=== PATIENT | female | born 1980 | race Two or more races ===

== ENCOUNTER 2017-07-16 23:06 | Emergency (ER) | payer MEDICAID ==
[~2017-07-16] VITALS: Ht 154.9 cm; Wt 56.7 kg
[~2017-07-16 23:06] MED LIST: DIAZ10TA PO; DIPH2.5T73 PO; ONDA4TAB5 PO
[2017-07-16 23:35] VITALS: BP 148/95
== END 2017-07-17 01:39 | disposition short-term general hospital (02) ==
LOC: EDBD 23:06 → EDUNIT# 23:06 → ER 23:27
DX: T74.21XA Adult sexual abuse, confirmed, initial encounter (principal); Y92.89 Other specified places as the place of occurrence of the external cause

== ENCOUNTER → 2019-11-10 | Emergency (ER) | payer MEDICAID ==
[~2019-11-10] VITALS: Ht 154.9 cm; Wt 59.0 kg
[~2019-11-10] MED LIST changes: +KETOROLAC TROMETH 30 MG/ML 1ML VIAL IV ONE; +ONDA-144 PO; -ONDA4TAB5 PO; +ONDANSETRON HCL 4 MG/2 ML VIAL IV ONE; +SODIUM CHLORIDE 0.9% 1,000 ML IV ONE; +diphenhdrAMINE HCL 50 MG/1 ML VL IV ONE; +diphenhdrAMINE HCL 50 MG/1 ML VL ONE
[2019-11-10 14:39] LABS: Basophils # (auto) 0.1 10 ^3/uL (0-0.2); Basophils % (auto) 0.7 % (0.0-2.0); Eosinophils # (auto) 0.1 10 ^3/uL (0-0.8); Eosinophils % (auto) 1.5 % (0.0-7.0); Hematocrit 36.7 % (36.0-46.0); Hemoglobin 12.1 g/dL (12.2-16.2); Lymphocytes # (auto) 2.7 10 ^3/uL (0.4-5.4); Lymphocytes % (auto) 33.2 % (10.0-50.0); Mean Corpuscular Hemoglobin 28.1 pg (28.0-32.0); Mean Corpuscular Volume 85.1 fL (80.0-100.0); Monocytes # (auto) 0.8 10 ^3/uL (0-1.3); Monocytes % (auto) 10.2 % (0.0-12.0); Neutrophils # (auto) 4.4 10 ^3/uL (1.6-8.6); Neutrophils % (auto) 54.4 % (37.0-80.0); Nucleated Red Blood Cells % 0.2 %; Platelet Count (auto) 302 10^3/uL (140-450); Red Blood Cells 4.31 10^6/uL (4.0-5.20); Red Cell Distribution Width 14.3 % (11.8-14.3); White Blood Cell 8.1 10^3/uL (4.4-10.8)
[2019-11-10 14:53] VITALS: BP 100/69
[2019-11-10 14:53] LABS: Alanine Aminotransferase 21 U/L (13-56); Albumin 2.9 g/dL (3.4-5.0); Anion Gap 5 (5-15); Aspartate Aminotransferase 18 U/L (15-37); BUN/Creatinine Ratio 20.8; Blood Urea Nitrogen 10 mg/dL (7-18); Carbon Dioxide 24 mmol/L (21-32); Chloride 112 mmol/L (98-107); GFR African American 184 mL/min; GFR Non-African American 152 mL/min; Glucose 84 mg/dL (74-106); Potassium 3.6 mmol/L (3.5-5.1); Sodium 141 mmol/L (136-145)
[2019-11-10 14:58] LABS: Alkaline Phosphatase 64 U/L (45-117); Bilirubin, Total 0.3 mg/dL (0.2-1.0); Total Protein 6.5 g/dL (6.4-8.2)
== END | disposition home or self-care (01) ==
LOC: EDUNIT# 13:17 → ER 13:29 → EDBD 13:29
DX: G40.909 Epilepsy, unspecified, not intractable, without status epilepticus (principal); F19.90 Other psychoactive substance use, unspecified, uncomplicated; E46 Unspecified protein-calorie malnutrition; F17.210 Nicotine dependence, cigarettes, uncomplicated; Z68.24 Body mass index [BMI] 24.0-24.9, adult; Z90.49 Acquired absence of other specified parts of digestive tract
CPT/HCPCS: 36415; 70450; 71045; 80053; 84484; 85025; 96361; 96374; 96375; 99285; J1200; J1885; J2405; J7030

== ENCOUNTER 2020-01-15 14:29 | Emergency (ER) | payer MEDICAID ==
[~2020-01-15] VITALS: Ht 152.4 cm; Wt 63.5 kg
[~2020-01-15 14:29] MED LIST changes: -KETOROLAC TROMETH 30 MG/ML 1ML VIAL IV ONE; -ONDANSETRON HCL 4 MG/2 ML VIAL IV ONE; -SODIUM CHLORIDE 0.9% 1,000 ML IV ONE; -diphenhdrAMINE HCL 50 MG/1 ML VL IV ONE; -diphenhdrAMINE HCL 50 MG/1 ML VL ONE
[2020-01-15 15:50] LABS: Basophils # (auto) 0.1 10 ^3/uL (0-0.2); Basophils % (auto) 1.1 % (0.0-2.0); Eosinophils # (auto) 0.1 10 ^3/uL (0-0.8); Eosinophils % (auto) 1.5 % (0.0-7.0); Hematocrit 38.3 % (36.0-46.0); Hemoglobin 12.4 g/dL (12.2-16.2); Lymphocytes # (auto) 1.7 10 ^3/uL (0.4-5.4); Lymphocytes % (auto) 20.4 % (10.0-50.0); Mean Corpuscular Hemoglobin 27.5 pg (28.0-32.0); Mean Corpuscular Hgb Conc. 32.3 g/dL (32.0-36.0); Monocytes # (auto) 0.9 10 ^3/uL (0-1.3); Monocytes % (auto) 10.9 % (0.0-12.0); Neutrophils # (auto) 5.4 10 ^3/uL (1.6-8.6); Neutrophils % (auto) 66.1 % (37.0-80.0); Nucleated Red Blood Cells % 0.1 %; Platelet Count (auto) 385 10^3/uL (140-450); Red Cell Distribution Width 15.6 % (11.8-14.3); White Blood Cell 8.2 10^3/uL (4.4-10.8)
[2020-01-15 15:52] VITALS: BP 136/72
[2020-01-15 16:09] LABS: Potassium 3.9 mmol/L (3.5-5.1)
[2020-01-15 16:16] LABS: Albumin 3.3 g/dL (3.4-5.0); BUN/Creatinine Ratio 16.7; Bilirubin, Total 0.4 mg/dL (0.2-1.0); Calcium 8.5 mg/dL (8.5-10.1); Total Protein 7.3 g/dL (6.4-8.2)
[2020-01-15] MEDS ORDERED: LORazepam 2MG/ML-1ML VIAL IV ONE (17:00)
[2020-01-15] MEDS ORDERED: MORPHINE SULFATE 4 MG/ML SYR/VIAL IV ONE (17:00)
[2020-01-15] MEDS ORDERED: ONDANSETRON HCL 4 MG/2 ML VIAL IV ONE (17:00)
[2020-01-15] MEDS ORDERED: diphenhdrAMINE HCL 50 MG/1 ML VL IV ONE (17:30)
== END 2020-01-15 17:46 | disposition home or self-care (01) ==
LOC: EDBD 14:29 → ER 14:29
DX: G40.909 Epilepsy, unspecified, not intractable, without status epilepticus (principal); F19.20 Other psychoactive substance dependence, uncomplicated; F17.210 Nicotine dependence, cigarettes, uncomplicated; F41.9 Anxiety disorder, unspecified; Z90.49 Acquired absence of other specified parts of digestive tract; Z79.899 Other long term (current) drug therapy
CPT/HCPCS: 36415; 70450; 80053; 85025; 96374; 96375; 99284; J1200; J2060; J2270; J2405

== ENCOUNTER 2021-02-20 20:09 | Inpatient (IN) | payer MEDICAID ==
[~2021-02-20] VITALS: Ht 154.9 cm; Wt 77.9 kg
[2021-02-20 22:14] LABS: Basophils # (auto) 0.1 10 ^3/uL (0-0.2); Basophils % (auto) 0.4 % (0.0-2.0); Eosinophils # (auto) 0.1 10 ^3/uL (0-0.8); Eosinophils % (auto) 0.3 % (0.0-7.0); Hematocrit 38.9 % (36.0-46.0); Hemoglobin 13.1 g/dL (12.2-16.2); Lymphocytes # (auto) 2.9 10 ^3/uL (0.4-5.4); Lymphocytes % (auto) 14.7 % (10.0-50.0); Mean Corpuscular Hemoglobin 27.3 pg (28.0-32.0); Mean Corpuscular Hgb Conc. 33.6 g/dL (32.0-36.0); Mean Corpuscular Volume 81.1 fL (80.0-100.0); Monocytes # (auto) 1.5 10 ^3/uL (0-1.3); Monocytes % (auto) 7.5 % (0.0-12.0); Neutrophils # (auto) 15.4 10 ^3/uL (1.6-8.6); Neutrophils % (auto) 77.1 % (37.0-80.0); Nucleated Red Blood Cells % 0.1 %; Red Blood Cells 4.79 10^6/uL (4.0-5.20); Red Cell Distribution Width 15.5 % (11.8-14.3)
[2021-02-20 22:30] LABS: Albumin 2.6 g/dL (3.4-5.0); Calcium 8.4 mg/dL (8.5-10.1); Potassium 3.8 mmol/L (3.5-5.1)
[2021-02-20 22:32] LABS: BUN/Creatinine Ratio 11.1; Bilirubin, Total 0.4 mg/dL (0.2-1.0); Total Protein 7.9 g/dL (6.4-8.2)
[2021-02-21] MEDS ORDERED: VANCOMYCIN 1GM/250ML 250 ML IV ONE (03:45)
[2021-02-21] MEDS ORDERED: PIPERACILLIN-TAZO 4.5GM 100 ML IV ONE (03:45)
[2021-02-21] MEDS ORDERED: TETANUS-DIPTH-ACEL PERTUSSIS 0.5ML SYR Tdap IM ONE (03:45)
[2021-02-21] MEDS ORDERED: HYDROcodone-ACET 5/325MG TAB PO ONE (04:30)
[2021-02-21 05:52] LABS: Chloride 104 mmol/L (98-107); Potassium 3.3 mmol/L (3.5-5.1)
[2021-02-21 05:55] LABS: BUN/Creatinine Ratio 11.9; Blood Urea Nitrogen 8 mg/dL (7-18); Calcium 8.1 mg/dL (8.5-10.1); Carbon Dioxide 25 mmol/L (21-32); GFR African American 125 mL/min; GFR Non-African American 103 mL/min; Glucose 96 mg/dL (74-106)
[2021-02-21] MEDS ORDERED: IOHEXOL 300 MG/ML 100ML BOTTLE IJ ONE (06:10)
[2021-02-21 06:15] LABS: CRP High Sensitivity > 19 mg/dL (< 0.3)
[2021-02-21 07:39] LABS: Anion Gap 9 (5-15); Sodium 138 mmol/L (136-145)
[2021-02-21] MEDS ORDERED: cefTRIAXone 1GM/50ML D5W 50 ML IV ONE (17:15)
[2021-02-21] MEDS ORDERED: DEXTROSE (50%) 50ML SYRG IV PRN (17:15)
[2021-02-21] MEDS ORDERED: VANCOMYCIN PER PHARMACY 0 MG IV SCH (17:15)
[2021-02-21] MEDS ORDERED: NITROGLYCERIN 0.4 MG SL TAB SL PRN (18:15)
[2021-02-21] MEDS ORDERED: VANCOMYCIN 1GM/250ML 250 ML IV SCH (20:15)
[2021-02-21] MEDS ORDERED: InsuLIN REG 1unit/0.01ml Soln (100units/ml) SC SCH (22:00)
[2021-02-21] MEDS: ACCU-CHEK COMFORT CURVE STRIP VI SCH (22:21)
[2021-02-22 05:12] LABS: Basophils # (auto) 0.2 10 ^3/uL (0-0.2); Basophils % (auto) 1.1 % (0.0-2.0); Eosinophils # (auto) 0.1 10 ^3/uL (0-0.8); Eosinophils % (auto) 0.3 % (0.0-7.0); Hematocrit 36.7 % (36.0-46.0); Hemoglobin 12.3 g/dL (12.2-16.2); Lymphocytes # (auto) 2.6 10 ^3/uL (0.4-5.4); Lymphocytes % (auto) 16.1 % (10.0-50.0); Mean Corpuscular Hemoglobin 27.3 pg (28.0-32.0); Mean Corpuscular Hgb Conc. 33.6 g/dL (32.0-36.0); Mean Corpuscular Volume 81.3 fL (80.0-100.0); Monocytes # (auto) 1.5 10 ^3/uL (0-1.3); Neutrophils # (auto) 11.9 10 ^3/uL (1.6-8.6); Neutrophils % (auto) 73.5 % (37.0-80.0); Nucleated Red Blood Cells % 0.1 %; Red Blood Cells 4.51 10^6/uL (4.0-5.20); Red Cell Distribution Width 15.5 % (11.8-14.3); White Blood Cell 16.2 10^3/uL (4.4-10.8)
[2021-02-22 05:25] LABS: Calcium 8.6 mg/dL (8.5-10.1); Potassium 3.4 mmol/L (3.5-5.1)
[2021-02-22] MEDS: ACCU-CHEK COMFORT CURVE STRIP VI SCH (06:51)
[2021-02-22] MEDS ORDERED: InsuLIN REG 1unit/0.01ml Soln (100units/ml) SC SCH (07:00)
[2021-02-22] MEDS: VANCOMYCIN 750mg/250ml 250 ML IV SCH ×4 (07:00→23:00)
[2021-02-22] MEDS: MORPHINE SULFATE INJECTION 2 MG/ML SYRG IV PRN ×2 (09:41→14:49)
[2021-02-22] MEDS ORDERED: SODIUM CHLORIDE 0.9% 1,000 ML IV SCH (15:00)
[2021-02-22] MEDS: SODIUM CHLORIDE 0.9% 1,000 ML IV SCH (16:00)
[2021-02-22] MEDS: cefTRIAXone 1GM/50ML D5W 50 ML IV SCH (16:22)
[2021-02-22] MEDS ORDERED: HYDROcodone-ACET 7.5/325MG TAB PO PRN (16:30)
[2021-02-22] MEDS ORDERED: PROMETHAZINE HCL 25 MG/ML 1ML IV PRN (16:30)
[2021-02-22] MEDS: TORSEMIDE 20 MG TAB PO SCH (18:22)
[2021-02-22 18:35] LABS: Urine Bacteria FEW /hpf (None Seen); Urine Blood Negative /uL (Negative); Urine Hyaline Cast FEW /lpf (0 - 2); Urine Mucus FEW (None Seen); Urine Specific Gravity 1.013 (1.001-1.035); Urine WBC 4 /hpf (0 - 5)
[2021-02-22 18:46] LABS: Alcohol, Urine < 3.0 mg/dL (0-10); Amphetamine Screen, Urine POSITIVE (NEGATIVE); Barbiturate Scree,Urine NEGATIVE (NEGATIVE); Benzodiazephine Screen, Urine POSITIVE (NEGATIVE); Cannabinoid Screen, Urine NEGATIVE (NEGATIVE); Cocaine Screen, Urine NEGATIVE (NEGATIVE); Opiate Scree,Urine POSITIVE (NEGATIVE); Phencyclidine Screen, Urine NEGATIVE (NEGATIVE)
[2021-02-22] MEDS ORDERED: LEVE100012 PO (20:51)
[2021-02-22] MEDS: traZODone HCL 50 MG TAB PO SCH (21:04)
[2021-02-22] MEDS: levETIRAcetam 500 MG TAB PO SCH (21:04)
[2021-02-22] MEDS: ALPRAZolam 0.5 MG TAB PO SCH (21:05)
[2021-02-22] MEDS ORDERED: traZODone HCL 50 MG TAB PO SCH (22:00)
[2021-02-23 04:08] LABS: Basophils # (auto) 0.2 10 ^3/uL (0-0.2); Basophils % (auto) 1.5 % (0.0-2.0); Eosinophils # (auto) 0.2 10 ^3/uL (0-0.8); Eosinophils % (auto) 1.6 % (0.0-7.0); Hematocrit 36.2 % (36.0-46.0); Hemoglobin 12.3 g/dL (12.2-16.2); Lymphocytes # (auto) 1.5 10 ^3/uL (0.4-5.4); Lymphocytes % (auto) 11.5 % (10.0-50.0); Mean Corpuscular Hemoglobin 27.5 pg (28.0-32.0); Mean Corpuscular Volume 81.1 fL (80.0-100.0); Monocytes # (auto) 0.8 10 ^3/uL (0-1.3); Monocytes % (auto) 6.3 % (0.0-12.0); Neutrophils # (auto) 10.6 10 ^3/uL (1.6-8.6); Neutrophils % (auto) 79.1 % (37.0-80.0); Red Blood Cells 4.46 10^6/uL (4.0-5.20); Red Cell Distribution Width 15.4 % (11.8-14.3); White Blood Cell 13.4 10^3/uL (4.4-10.8)
[2021-02-23 04:39] LABS: BUN/Creatinine Ratio 14.7; Calcium 8.3 mg/dL (8.5-10.1); Potassium 3.4 mmol/L (3.5-5.1)
[2021-02-23] MEDS: TORSEMIDE 20 MG TAB PO SCH (06:00)
[2021-02-23] MEDS: SODIUM CHLORIDE 0.9% 1,000 ML IV SCH (06:18)
[2021-02-23] MEDS: VANCOMYCIN 750mg/250ml 250 ML IV SCH ×2 (08:19→18:42)
[2021-02-23] MEDS: levETIRAcetam 500 MG TAB PO SCH ×2 (10:19→22:00)
[2021-02-23] MEDS: ALPRAZolam 0.5 MG TAB PO SCH ×2 (10:19→22:00)
[2021-02-23] MEDS: OLANZapine 5 MG TAB PO SCH (10:20)
[2021-02-23] MEDS: cefTRIAXone 1GM/50ML D5W 50 ML IV SCH (11:00)
[2021-02-23] MEDS ORDERED: POTASSIUM EFFERVESENT TAB 25 MEQ PO ONE (12:00)
[2021-02-23] MEDS ORDERED: traMADol HCL 50 MG TAB PO PRN (12:30)
[2021-02-23] MEDS ORDERED: POTASSIUM CHL 20 Meq TABLET PO ONE ×2 (14:00)
[2021-02-23] MEDS: FAMOTIDINE 20 MG TAB PO SCH (22:00)
[2021-02-23] MEDS: traZODone HCL 50 MG TAB PO SCH (22:00)
[2021-02-24] MEDS: VANCOMYCIN 750mg/250ml 250 ML IV SCH ×2 (06:04→18:37)
[2021-02-24 09:00] VITALS: BP 93/61
[2021-02-24] MEDS: cefTRIAXone 1GM/50ML D5W 50 ML IV SCH (09:22)
[2021-02-24] MEDS: TORSEMIDE 20 MG TAB PO SCH (10:00)
[2021-02-24 10:16] LABS: Basophils # (auto) 0.1 10 ^3/uL (0-0.2); Eosinophils # (auto) 0.2 10 ^3/uL (0-0.8); Red Cell Distribution Width 15.1 % (11.8-14.3); White Blood Cell 8.7 10^3/uL (4.4-10.8)
[2021-02-24 10:19] LABS: Basophils % (auto) 1.3 % (0.0-2.0); Eosinophils % (auto) 2.2 % (0.0-7.0); Lymphocytes # (auto) 2.4 10 ^3/uL (0.4-5.4); Lymphocytes % (auto) 27.4 % (10.0-50.0); Mean Corpuscular Hemoglobin 27.7 pg (28.0-32.0); Mean Corpuscular Hgb Conc. 34.3 g/dL (32.0-36.0); Mean Corpuscular Volume 80.7 fL (80.0-100.0); Monocytes # (auto) 0.8 10 ^3/uL (0-1.3); Monocytes % (auto) 9.7 % (0.0-12.0); Neutrophils # (auto) 5.1 10 ^3/uL (1.6-8.6); Neutrophils % (auto) 59.4 % (37.0-80.0); Red Blood Cells 4.33 10^6/uL (4.0-5.20)
[2021-02-24 10:37] LABS: Potassium 3.2 mmol/L (3.5-5.1)
[2021-02-24] MEDS: FAMOTIDINE 20 MG TAB PO SCH ×2 (10:37→21:49)
[2021-02-24] MEDS: ALPRAZolam 0.5 MG TAB PO SCH ×2 (10:38→21:49)
[2021-02-24] MEDS: OLANZapine 5 MG TAB PO SCH (10:38)
[2021-02-24] MEDS: levETIRAcetam 500 MG TAB PO SCH ×2 (10:38→21:49)
[2021-02-24 10:46] LABS: Calcium 8.3 mg/dL (8.5-10.1)
[2021-02-24 13:00] VITALS: BP 94/58
[2021-02-24 17:00] VITALS: BP 96/59
[2021-02-24] MEDS: traZODone HCL 50 MG TAB PO SCH (21:50)
[2021-02-24 22:00] VITALS: BP 106/66
[2021-02-25 05:00] VITALS: BP 92/54
[2021-02-25] MEDS: VANCOMYCIN 750mg/250ml 250 ML IV SCH (06:58)
[2021-02-25] MEDS ORDERED: SULF400T11 PO (09:11)
[2021-02-25] MEDS: OLANZapine 5 MG TAB PO SCH (09:21)
[2021-02-25] MEDS: levETIRAcetam 500 MG TAB PO SCH (09:21)
[2021-02-25] MEDS: cefTRIAXone 1GM/50ML D5W 50 ML IV SCH (09:21)
[2021-02-25] MEDS: ALPRAZolam 0.5 MG TAB PO SCH (09:21)
[2021-02-25] MEDS: FAMOTIDINE 20 MG TAB PO SCH (09:21)
[2021-02-25] MEDS: TORSEMIDE 20 MG TAB PO SCH (10:00)
[2021-02-25 14:09] VITALS: BP 99/59
== END 2021-02-25 15:15 | disposition home or self-care (01) | DRG 383 ==
LOC: ER 20:09 → OVERFLOW 02-21 18:11 → WEST WING 02-24 01:04
PROVIDERS: ADMIT Hospitalist; ATTEND Hospitalist
DX: L03.116 Cellulitis of left lower limb (principal); F17.210 Nicotine dependence, cigarettes, uncomplicated; G40.909 Epilepsy, unspecified, not intractable, without status epilepticus; F19.20 Other psychoactive substance dependence, uncomplicated; F32.9 Major depressive disorder, single episode, unspecified; Z20.822 Contact with and (suspected) exposure to COVID-19; F41.9 Anxiety disorder, unspecified; Z82.3 Family history of stroke; Z83.3 Family history of diabetes mellitus; Z90.49 Acquired absence of other specified parts of digestive tract
CPT/HCPCS: 36415; 73590; 73701; 80048; 80053; 80202; 80307; 81001; 82565; 82962; 83605; 85025; 85652; 86141; 87040; 87086; 87088; 87426; 90471; 90715; 93970; 96365; 96366; 96367; 96372; 96375; 96376; G0378; J0696; J1815; J2543

== ENCOUNTER 2023-12-21 10:17 | Emergency (ER) | payer MEDICAID ==
[~2023-12-21] VITALS: Ht 152.4 cm; Wt 70.5 kg
[~2023-12-21 10:17] MED LIST changes: -DIAZ10TA PO; +DIAZ10TA66 PO; +LEVE100012 PO; +SULF400T11 PO
[2023-12-21 11:32] VITALS: BP 119/81; PULSE 78; RESP 17; TEMP 98.1; O2SAT 96
[2023-12-21] MEDS: SODIUM CHLORIDE 0.9% 1,000 ML IVB ONE (11:40)
[2023-12-21] MEDS: ONDANSETRON HCL 4 MG/2 ML VIAL IV ONE (11:40)
[2023-12-21] MEDS: KETOROLAC TROMETH 30 MG/ML 1ML VIAL IV ONE (11:41)
[2023-12-21] MEDS: METOCLOPRAMIDE HCL 5MG/ml INJ 2ml VIAL IV ONE (11:41)
[2023-12-21] MEDS: diphenhdrAMINE HCL 50 MG/1 ML VL IV ONE ×2 (11:41→11:56)
[2023-12-21] MEDS: HALOPERIDOL LACTATE 5 MG/ML INJ VIAL IM ONE (11:53)
[2023-12-21 12:12] LABS: COVID19 ANTIGEN SOFIA FIA NEGATIVE (NEGATIVE)
[2023-12-21 13:32] LABS: Basophils # (auto) 0 10 ^3/uL (0-0.2); Basophils % (auto) 0.2 % (0.0-2.0); Eosinophils # (auto) 0.1 10 ^3/uL (0-0.8); Eosinophils % (auto) 0.9 % (0.0-7.0); Hematocrit 39.6 % (36.0-46.0); Hemoglobin 13.2 g/dL (12.2-16.2); Lymphocytes # (auto) 1.5 10 ^3/uL (0.4-5.4); Lymphocytes % (auto) 14.3 % (10.0-50.0); Mean Corpuscular Hemoglobin 27.2 pg (28.0-32.0); Mean Corpuscular Hgb Conc. 33.4 g/dL (32.0-36.0); Mean Corpuscular Volume 81.4 fL (80.0-100.0); Monocytes # (auto) 0.6 10 ^3/uL (0-1.3); Monocytes % (auto) 6.1 % (0.0-12.0); Neutrophils % (auto) 78.5 % (37.0-80.0); Nucleated Red Blood Cells % 0.1 %; Red Blood Cells 4.87 10^6/uL (4.0-5.20); Red Cell Distribution Width 14.7 % (11.8-14.3); White Blood Cell 10.2 10^3/uL (4.4-10.8)
[2023-12-21 13:42] LABS: Alanine Aminotransferase 36 U/L (7-40); Alkaline Phosphatase 100 U/L (46-116); Anion Gap 6 (5-15); Aspartate Aminotransferase 30 U/L (13-40); BUN/Creatinine Ratio 25.5 (10.0-20.0); Blood Alcohol < 3.0 mg/dL (<10); Blood Urea Nitrogen 14 mg/dL (9-23); Calcium 8.2 mg/dL (8.5-10.1); Carbon Dioxide 20 mmol/L (20-30); Chloride 110 mmol/L (98-107); Glucose 106 mg/dL (74-106); Magnesium 1.9 mg/dL (1.6-2.6); Potassium 4.6 mmol/L (3.5-5.1); Sodium 136 mmol/L (136-145)
[2023-12-21 13:43] LABS: Bilirubin, Total 0.5 mg/dL (0.2-1.0); Total Protein 6.5 g/dL (5.7-8.2)
[2023-12-21 14:01] LABS: Lipase 28 U/L (12-53)
== END 2023-12-21 14:15 | disposition left against medical advice (07) ==
LOC: EDBD 10:17 → EDUNIT# 10:17 → ER 10:17
DX: R10.84 Generalized abdominal pain (principal); F19.10 Other psychoactive substance abuse, uncomplicated; R10.2 Pelvic and perineal pain; F41.9 Anxiety disorder, unspecified; F32.A Depression, unspecified; R56.9 Unspecified convulsions; F17.210 Nicotine dependence, cigarettes, uncomplicated; Z90.49 Acquired absence of other specified parts of digestive tract; Z53.29 Procedure and treatment not carried out because of patient's decision for other reasons; Z88.8 Allergy status to other drugs, medicaments and biological substances; Z20.822 Contact with and (suspected) exposure to COVID-19
CPT/HCPCS: 36415; 80053; 80320; 83690; 83735; 84702; 85025; 87426; 96361; 96372; 96374; 96375; 99285; J1200; J1630; J2405; J7030; J1885